=== PATIENT | female | born 1975 ===

== ENCOUNTER 2018-05-28 10:30 | Inpatient (IN) | payer OTHER ==
[~2018-05-28] VITALS: Ht 160 cm; Wt 81.6 kg
[2018-05-28] MEDS ORDERED: NEURONTIN800 MG PO (16:27)
[2018-05-28] MEDS ORDERED: EFFEXOR XR150 MG PO (16:28)
[2018-05-28] MEDS ORDERED: ZANTAC300 MG PO (16:30)
[2018-05-28] MEDS ORDERED: ZANAFLEX4 MG PO (16:31)
[2018-05-28] MEDS ORDERED: TOPAMAX200 MG PO (16:31)
[2018-05-28] MEDS ORDERED: CLONAZEPAM0.5 M1 PO (16:32)
[2018-05-28] MEDS ORDERED: DEPO-PROVE150 MG/11 IM (16:32)
[2018-05-28] MEDS ORDERED: PRILOSEC10 MG PO (16:32)
[2018-05-28] MEDS ORDERED: INDERAL LA160 MG PO (16:33)
[2018-05-28] MEDS ORDERED: RESTORIL30 M1 PO (16:33)
[2018-05-28] MEDS ORDERED: NORVASC2.5 MG PO (16:35)
== END 2018-06-05 18:10 | DRG 470 ==
LOC: SURH 10:30 → O/R 06-03 10:52 → SURG 06-03 10:52 → SURH 06-03 10:52 → SURG 06-03 16:34 → SURH 06-04 16:05
PROVIDERS: ADMIT Orthopaedic Surgery
PROC: 0SRC0J9 Replacement of Right Knee Joint with Synthetic Substitute, Cemented, Open Approach (ICD-10-PCS; principal; 2018-06-03 07:00)
DX: M17.11 Unilateral primary osteoarthritis, right knee (principal); M79.7 Fibromyalgia; F32.89 Other specified depressive episodes; F41.8 Other specified anxiety disorders